=== PATIENT | male | born 1985 | race Caucasian/White ===

== ENCOUNTER 2022-04-21 08:49 | Outpatient (CLI) | payer BC, SELFPAY ==
[2022-04-21 13:35] LABS: Albumin* 4.7 g/dL (3.3-5.0); Chloride* 102 mmol/L (96-114); Sodium* 140 mmol/L (135-149)
[2022-04-21 13:36] LABS: Potassium* 4.3 mmol/L (3.6-5.1)
[2022-04-21 13:37] LABS: Cholesterol* 149 mg/dL (90-199)
[2022-04-21 13:38] LABS: Alkaline Phosphatase* 54 U/L (40-150); Aspartate Amino Transferase* 25 U/L (12-35); Bilirubin Total* 0.6 mg/dL (0.1-1.5); Blood Urea Nitrogen* 17 mg/dL (5-24); Carbon Dioxide* 29 mmol/L (20-32); Creatinine* 0.8 mg/dL (0.5-1.5); Estimated Glomerular Filt Rate 117 ml/min; Glucose* 106 mg/dL (60-115); Total Protein* 7.3 g/dL (6.0-8.3); Triglycerides* 46 mg/dL (40-149)
[2022-04-21 13:39] LABS: Alanine Aminotransferase* 16 U/L (4-50); Calcium* 9.6 mg/dL (8.4-10.6); HDL Cholesterol* 64 mg/dL (>=40); LDL Cholesterol Calculated 76 mg/dL (<100)
== END 2022-04-21 08:50 | disposition home or self-care (01) ==
PROVIDERS: PCP Family Medicine; Visit Provider Family Medicine
DX: Z00.00 Encounter for general adult medical examination without abnormal findings (principal); Z13.6 Encounter for screening for cardiovascular disorders
CPT/HCPCS: 80053; 80061